=== PATIENT | female | born 1935 | race Caucasian/White ===

== ENCOUNTER 2020-06-16 08:43 | Outpatient (RCR) | payer MEDICARE, SELFPAY | END 2020-06-16 23:59 | LOC: IMMUN 08:43 | PROVIDERS: PCP Family Medicine; Visit Provider Family Medicine | DX: Z23 Encounter for immunization (principal) | CPT/HCPCS: 0011A; 0012A ==

== ENCOUNTER → 2020-06-22 11:28 | Outpatient (CLI) | payer MEDICARE, SELFPAY ==
[2020-06-22 15:32] LABS: Anion Gap 5 (5-15); BUN 13 mg/dL (7-18); BUN/Creat Ratio 19.7 RATIO (10-20); Calcium,Total 9.1 mg/dL (8.5-10.1); Chloride 103 mmol/L (98-107); Creatinine, Serum 0.66 mg/dL (0.55-1.02); EST Glomerular Filtration Rate 91 mL/min (>60); Est Glom Filt Rate - Afr Amer 110 mL/min (>60); Glucose 85 mg/dL (74-106); Microalbumin,Random Urine 25.5 mg/L (NO RANGE EST.); Microalbumin:Creatinine Ratio 88.2 mg/g CRE (<30 mg/g CRE); Potassium 3.7 mmol/L (3.5-5.1); Sodium Level 138 mmol/L (136-145)
== END ==
PROVIDERS: PCP Family Medicine; Referring Provider Family Medicine; Visit Provider Family Medicine
DX: I10 Essential (primary) hypertension (principal)
CPT/HCPCS: 36415; 80048; 82043; 82570

== ENCOUNTER 2020-10-05 13:00 | Outpatient (RCR) | payer MEDICARE, OTHER, SELFPAY ==
--- NOTE | 2020-09-08 13:41 | HP.PTEVAL_ITS ---
Patient's Visit Information EILEEN GIMENEZ is a 85 year old F referred to Physical Therapy by Dr. Alfa Magana MD with a diagnosis of gait instability, postural imbalance. Date of Evaluation: 09/08/20 Physical Therapist: REJI Alvarado - Visit Plan Frequency: 1x/Week Duration: 4 Weeks Plan: Please give HEP for balance and strength each visit as daughter will help her at home. 1X/ week for 4 weeks for Balance activities, LE strengthening, gait training, vestibular inputs with HEP (daughter can help her at home). Neurocom testing will not be done at this time as the pt does not feel she can stand there for more than 1 minute without having to hold onto anything and her daughter agrees - Subjective Pt has gait instability and imbalance. They just moved from [place] to [place] in January. During the move it was unsettling for her and she had some issues. She was up and moving around. She has no steps in her new place. She can walk but she likes to falls and she does not feel real confident walking by herself and uses the cane. She does a lot of things by herself. She walks a lot. She lives with her daughter Beth. 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 She does most cooking and laundry. Dr Magana said she needed PT... she has osteopenia and rounded shoulders and needed to see PT. No falls this year. She has fallen in the past. She tries to get out and take little walks. Her L foot aches across the front of her foot and daughter reports she turns it when she walks. She has had plantar fascitis in the past. Pt has anxiety. Pt is not sleeping at night and has not told her Dr. - Objective Gait: Short steppage gait... decreased heel to toe pattern and increased veering. No arm swing. Pt struggles with toe raises but can do heel raises. LE MMT: B hip flex 4-/5, B knee ext 4-/5, B knee ext 4+/5, R hip abd 4/5, L hip abd 4-/5. Full ROM bridge. FGA: 04/21 ( walking BW and walking in generall she likes to reach out and try and hold onto somethings). CATSIB: 91. Tight B gastroc tightness. Sit to stand: unable to stand without using her arms. Stairs: up stairs recip with 2 handrails and down stairs she went recip with 2 handrails more SW. L foot arch collapsing.... - Balance Scores Functional Gait Assessment Score: 12 % Disability: 60.0000 CATSIB Score (Max score 120 seconds): 91 - Goals Goal 1:: I HEP Goal Time Frame: 6-8 Weeks Goal 2:: Walk back to the treatment room/gym with SBA without veering Goal Time Frame: 4-6 Weeks Goal 3:: Increase LE strength by 1/2 muscle grade (at time of eval: Pt s truggles with toe raises but can do heel raises. LE MMT: B hip flex 4-/5, B knee ext 4-/5, B knee ext 4+/5, R hip abd 4/5, L hip abd 4-/5. Full ROM bridge). Goal Time Frame: 4-6 Weeks Goal 4:: Increase FGA by 5 points to decrease fall risk (at time of eval score: 12). Goal Time Frame: 4-6 Weeks Goal 5:: Be able to perform 3 X 10 standing toe raises without LOB and UE if needed Goal Time Frame: 4-6 Weeks - Rehabilitation Potential Rehabilitation Potential: Good - Anticipated Interventions Patient/Client Instruction: Educate patient on: Condition, Plan of Care For the Purpose of:: To improve muscle performance and motor function, To improve ability to perform ADL's, To increase tolerance to activity/condition/position, To improve performance and independence with ADL's, To improve ability of physical actions for home/community/work/leisure, To improve gait and locomotor functions, To decrease soft tissue restriction, To increase flexibility/ROM, To improve balance, To improve safety with gait Therapeutic Exercise to Include: Strength training, Endurance training, Balance training, Postural training, Flexibilty training, Gait and locomotor training, Neuromotor development, Passive ROM, Active ROM, Dynamic Lumbar Stabilization For the Purpose of:: To improve muscle performance and motor function, To improve ability to perform ADL's, To increase tolerance to activity/condition/position, To improve performance and independence with ADL's, To decrease level of supervision to perform tasks, To improve ability of physical actions for home/community/work/leisure, To improve gait and locomotor functions, To improve health of tissue, To increase flexibility/ROM, To improve endurance, To improve balance, To improve safety with gait Functional Training to Include: Gait training For the Purpose of:: To improve gait and locomotor functions, To improve safety with gait Thank you for the opportunity to evaluate your patient. For Medicare and Medicare HMO plans, please review the plan of care and approve it. It will need to be FAXED BACK to us at [phone] for Medicare purposes. For Medicare only, by signing this I certify the plan of care. Please let me know if there are questions or concerns regarding this plan of care. Physician Signature: Date:
--- NOTE | 2020-10-05 13:58 | HP.PTDCSUM ---
It has been my pleasure to treat EILEEN GIMENEZ referred by Dr. Alfa Magana MD, with the diagnosis of gait instability, postural imbalance for a total of 5 visit(s). Discharge Date: 10/05/20 Please see the following information for a summary of their discharge status. Subjective: Pt reports that she is trying to do more on her own. She walked in with a walking stick without her daughter. She did grab for my arm at times. She went 5 miles at home on her exercise bike. She feels she can do more of her exercises at home now. She feels more comfortable walking by herself with her walking stick. % Improvement: 75 Objective/Function: Pt struggles with toe raises but can do heel raises... improved in ROM since eval though. LE MMT: B hip flex 4/5, B knee ext 4/5, B knee ext 4+/5, R hip abd 4/5, L hip abd 4/5. Full ROM bridge). FGA: 18 Goal 1:: I HEP Goal Progress: Goal Met Goal 2:: Walk back to the treatment room/gym with SBA without veering Goal Progress: Goal Met Goal 3:: Increase LE strength by 1/2 muscle grade (at time of eval: Pt struggles with toe raises but can do heel raises. LE MMT: B hip flex 4-/5, B knee ext 4-/5, B knee ext 4+/5, R hip abd 4/5, L hip abd 4-/5. Full ROM bridge). Goal Progress: Goal Met Goal 4:: Increase FGA by 5 points to decrease fall risk (at time of eval score: 12). Goal Progress: Goal Met Goal 5:: Be able to perform 3 X 10 standing toe raises without LOB and UE if needed Goal Progress: Progressing Plan: DC PT to HEP..... Discharge Comments: DC PT to HEP If there are questions or concerns regarding this patient's physical therapy, please feel free to call me at [phone]. Thank you for the referral of this patient. Sincerely, Soni Howard, MPT
== END 2020-10-05 14:42 | disposition home or self-care (01) ==
LOC: PT 13:00
PROVIDERS: PCP Family Medicine; Referring Provider Family Medicine; Visit Provider Family Medicine
DX: R26.89 Other abnormalities of gait and mobility (principal); R29.3 Abnormal posture
CPT/HCPCS: 97110; 97161; 97530

== ENCOUNTER 2022-09-21 13:42 | Outpatient (RCR) | payer MEDICARE, OTHER, SELFPAY | END 2022-09-21 19:00 | disposition home or self-care (01) | LOC: PT 13:42 | PROVIDERS: PCP Family Medicine; Referring Provider Family Medicine; Visit Provider Family Medicine | DX: M79.675 Pain in left toe(s) (principal); M79.2 Neuralgia and neuritis, unspecified ==

== ENCOUNTER 2023-05-30 13:00 | Outpatient (RCR) | payer MEDICARE, OTHER, SELFPAY ==
--- NOTE | 2023-04-25 13:54 | HP.PTEVAL ---
Patient's Visit Information Visit Information Visit Information: EILEEN GIMENEZ is a 88 year old F referred to Physical Therapy by Dr. Alfa Magana MD with a diagnosis of weak abdominals, gait instability. Date of Evaluation: 04/25/23 Physical Therapist: REJI Alvarado Visit Plan Frequency: 1x/Week Duration: 6 Weeks Plan: 1X/ week for 6 weeks to work on gait mechanics with and without a straight cane, turning, gait with head turns, curb steps, with HEP. Will work on giving pt HEP for hip and ankle strength. No need for balance machine at this point. HEP: standing hip abd/ext and standing heel and toe raises at kitchen sink. Bridges Subjective Subjective: Pt has a little bit of balance issues. She has some trouble walking and she uses the cane. She has dry macular degeneration and thinks that throws her balance off. She has had no falls. She does not use the cane unless she goes out but forgot it this morning. Her daughter lives with her and she leans on her a lot. Pt does not feel that she has any weakness. She has some trouble with her L foot. She does trip on her feet once in awhile. She has no stairs at home. She reports that she has no trouble getting up out of a chair. She has no dizziness Objective Objective: Gait: Walks with shorter step length and decreased heel to toe gait pattern requesting to hold onto therapists arm to get back to the treatment area due to forgetting her straight cane. LE MMT: R hip flex 14.6 and L 14.4 R knee ext 22.9 and L 24.1 R knee flex 8.9 and L 8.3 R hip abd R 7.2 and L 8.2 in standing FGA: 11/19 ( Instructed pt that she is at risk for falls and needs to use her AD) Pt struggles with toe raises and needs UE support and she is better with heel raises but still weak Sit to stand: Able to get up but needs UE to get out of a chair Balance/Special Test Scores Functional Gait Assessment Score: 7 % Disability: 76.6700 Lower Extremity Functional Score: 49 Goals Goal 1:: I HEP Goal Time Frame: 6-8 Weeks Goal 2:: Increase balance (score on FGA was 7 at eval) Goal Time Frame: 6-8 Weeks Goal 3:: Be able to walk back to the treatment room with good gait mechanics with a straight cane with SBA without veering or UE support Goal Time Frame: 6-8 Weeks Goal 4:: Walk with head turns without veering or losing her balance Goal Time Frame: 6-8 Weeks Rehabilitation Potential Rehabilitation Potential: Good Anticipated Interventions Patient/Client Instruction: Educate patient on: Condition and Plan of Care For the Purpose of:: To decrease pain, To increase ROM, To improve nutrient delivery to tissue, To improve muscle performance and motor function, To improve ability to perform ADL's, To improve performance and independence with ADL's, To improve ability of physical actions for home/community/work/leisure, To improve gait and locomotor functions, To improve endurance, To improve balance and To improve safety with gait Therapeutic Exercise to Include: Strength training, Endurance training, Balance training, Gait and locomotor training, Neuromotor development and Dynamic Lumbar Stabilization For the Purpose of:: To increase ROM, To improve nutrient delivery to tissue, To improve muscle performance and motor function, To improve ability to perform ADL's, To increase tolerance to activity/condition/position, To improve performance and independence with ADL's, To decrease level of supervision to perform tasks, To improve ability of physical actions for home/community/work/leisure, To improve gait and locomotor functions, To improve health of tissue, To improve endurance, To improve balance and To improve safety with gait Functional Training to Include: Gait training For the Purpose of:: To improve gait and locomotor functions and To improve safety with gait Text: Thank you for the opportunity to evaluate your patient. For Medicare and Medicare HMO plans, please review the plan of care and approve it. It will need to be FAXED BACK to us at [phone] for Medicare purposes. For Medicare only, by signing this I certify the plan of care. Please let me know if there are questions or concerns regarding this plan of care. Physician Signature: Date:
--- NOTE | 2023-05-30 13:33 | HP.PTDCSUM_ITS ---
Discharge Summary D/C summary: It has been my pleasure to treat EILEEN GIMENEZ referred by Dr. Alfa Magana MD, with the diagnosis of weak abdominals, gait instability for a total of 7 visit(s). Discharge Date: 05/30/23 Please see the following information for a summary of their discharge status. Subjective Subjective: Pt thinks that she has learned a lot about balance and she has learned that one of her challenges is to go backwards, and walking and looking R and L. She feels that she can continue to work with her daughter at home with her balance at home. She has a stationary bike at home that she will use also. Her daughter is holding her hand and having her turn her head R and L. She is doing other exercises as well. Overall Improvement % Improvement: 50 Objective Objective/Function: FGA: 15 walk with head turns Straight cane. Goals Goal 1:: I HEP Goal Progress: Goal Met Goal 2:: Increase balance (score on FGA was 7 at eval) Goal Progress: Goal Met Goal 3:: Be able to walk back to the treatment room with good gait mechanics with a straight cane with SBA without veering or UE support Goal Progress: Goal Met Goal 4:: Walk with head turns without veering or losing her balance Goal Progress: Goal Met Plan Plan: DC PT to [facility] working with her ad D/C Information Discharge Comments: DC PT to HEP and daughter will help who lives with her. d/c sentence: If there are questions or concerns regarding this patient's physical therapy, please feel free to call me at [phone]. Thank you for the referral of this patient. Sincerely, Soni Howard, MPT Balance/Gait/Functional tests Balance/Special Test Scores Functional Gait Assessment Score: 15 % Disability: 50.0000 Lower Extremity Functional Score: 45 Improvement % Improvement: 50
--- NOTE | 2023-05-30 14:04 | HP.PTDCSUM ---
Discharge Summary D/C summary: It has been my pleasure to treat EILEEN GIMENEZ referred by Dr. Alfa Magana MD, with the diagnosis of weak abdominals, gait instability for a total of 7 visit(s). Discharge Date: 05/30/23 Please see the following information for a summary of their discharge status. Subjective Subjective: Pt thinks that she has learned a lot about balance and she has learned that one of her challenges is to go backwards, and walking and looking R and L. She feels that she can continue to work with her daughter at home with her balance at home. She has a stationary bike at home that she will use also. Her daughter is holding her hand and having her turn her head R and L. She is doing other exercises as well. Overall Improvement % Improvement: 50 Objective Objective/Function: FGA: 15 walk with head turns Straight cane. Goals Goal 1:: I HEP Goal Progress: Goal Met Goal 2:: Increase balance (score on FGA was 7 at eval) Goal Progress: Goal Met Goal 3:: Be able to walk back to the treatment room with good gait mechanics with a straight cane with SBA without veering or UE support Goal Progress: Goal Met Goal 4:: Walk with head turns without veering or losing her balance Goal Progress: Goal Met Plan Plan: DC PT to [facility] working with her ad D/C Information Discharge Comments: DC PT to HEP and daughter will help who lives with her. d/c sentence: If there are questions or concerns regarding this patient's physical therapy, please feel free to call me at [phone]. Thank you for the referral of this patient. Sincerely, Soni Howard, MPT Balance/Gait/Functional tests Balance/Special Test Scores Functional Gait Assessment Score: 15 % Disability: 50.0000 Lower Extremity Functional Score: 45 Improvement % Improvement: 50
== END 2023-05-30 19:00 | disposition home or self-care (01) ==
LOC: PT 13:00
PROVIDERS: PCP Family Medicine; Referring Provider Family Medicine; Visit Provider Family Medicine
DX: R26.81 Unsteadiness on feet (principal); R53.1 Weakness
CPT/HCPCS: 97110; 97161; 97530

== ENCOUNTER 2024-07-18 12:11 | Outpatient (RCR) | payer MEDICARE, OTHER, SELFPAY ==
--- NOTE | 2024-07-18 13:11 | HP.PTEVAL ---
Patient's Visit Information Visit Information Visit Information: EILEEN GIMENEZ is a 89 year old F referred to Physical Therapy by Dr. Alfa Magana MD with a diagnosis of KNEE ARTHRITIS. Date of Evaluation: 07/18/24 Physical Therapist: Logan Henry PT, Cert MDT, OCS Visit Plan Frequency: 2x /Week Duration: 4 Weeks Plan: PT EVAL ONLY HEP PROVIDED WITH HANDOUT Subjective Subjective: This 89 y/o female presents to physical therapy with knee arthritis right knee. Patient has had knee pain June 29 walking to toilet had pain pain in knee slipped out of bed. Patient developed worsening knee pain. Dr Recommended PT no x-rays or medication.Pain global in knee described soreness ache. Aggravating factors inactivity unable to squat or kneeling . Alleviating factors heat. Patient uses cane but has rollator at home and community but used cane due to rain. Patient denies parestehesia/tingling . Patient pain doesn't affects sleeping . Patient lives with daughter no steps istep to garage . Patient has walk in shower with rails. Patient able to bath dress self daughter does cooking. Patient condition affects QOL and function Patient goals to decrease pain SOCIAL: lives with daughter Pain Left Knee: Pain Intensity (Out of 10): 2 Pain Intensity Range: 10 Comment: stiffness Objective Objective: POSTURE: mild forward posture ,hips/knees flexed GAIT: ambulates with cane with 2 point gait unsteady with CGA ( but patient uses rollator) NEURO: denies paresthesia/tingling ,reflexes L3-4,L4-5 ,L5- S1 1/3 EDEMA: absent PALAPTION: medial lateral mild joint line AROM: 0-130 degrees supine knee flexion MMT: quads/hams 4/5 ,hip flexion ,hip abduction 4-/5 ,ankle 5/5 FLEXABLITY: hamstrings min tight Special Tests L Knee Valgus - MCL: Negative L Knee Varus - LCL: Negative L Knee Patellar Apprehension - PFS: Negative L Knee Patellar Grind - PFS: Negative Goals Goal 1:: I with HEP for knee Goal Time Frame: 4-6 Weeks Goal 2:: Patient to improve LFES core by 5 points to improve QOL and function Goal Time Frame: 4-6 Weeks Goal 3:: Patient to demonstrate 50% improvement with ADL and function and mobility. Goal Time Frame: 4-6 Weeks Goal 4:: Patient to improve hip strength 4/5 to improve gait Goal Time Frame: 4-6 Weeks Rehabilitation Potential Physical Therapy Diagnosis: This patient has left knee pain with possible DJD with strain knee with decrease strength and mobility thus benefit from skilled PT,recommend using rollator Rehabilitation Potential: Fair Anticipated Interventions Patient/Client Instruction: Educate patient on: Condition and Plan of Care For the Purpose of:: To decrease pain, To increase ROM, To improve muscle performance and motor function, To improve ability to perform ADL's, To increase tolerance to activity/condition/position, To improve ability of physical actions for home/community/work/leisure, To improve health of tissue, To decrease soft tissue restriction, To increase flexibility/ROM and To improve tolerance to ADL's Therapeutic Exercise to Include: Strength training, Flexibilty training, Passive ROM and Active ROM Comment: QUADS/HAMS For the Purpose of:: To decrease pain, To increase ROM, To improve muscle performance and motor function, To increase tolerance to activity/condition/position, To improve ability of physical actions for home/community/work/leisure, To improve health of tissue and To decrease soft tissue restriction Text: Thank you for the opportunity to evaluate your patient. For Medicare and Medicare HMO plans, please review the plan of care and approve it. It will need to be FAXED BACK to us at [phone] for Medicare purposes. For Medicare only, by signing this I certify the plan of care. Please let me know if there are questions or concerns regarding this plan of care. Physician Signature: Date:
--- NOTE | 2024-08-28 11:41 | HP.PT.NRP ---
Patient Information Patient Information: EILEEN GIMENEZ was seen in my office for initial evaluation on 07/18/24. The following Plan of Care was established for this patient: POC Established Initial Frequency: 2x /Week Initial Duration: 4 Weeks Anticipated Interventions Patient/Client Instruction: Educate patient on: Condition and Plan of Care For the Purpose of:: To decrease pain, To increase ROM, To improve muscle performance and motor function, To improve ability to perform ADL's, To increase tolerance to activity/condition/position, To improve ability of physical actions for home/community/work/leisure, To improve health of tissue, To decrease soft tissue restriction, To increase flexibility/ROM and To improve tolerance to ADL's Therapeutic Exercise to Include: Strength training, Flexibilty training, Passive ROM and Active ROM For the Purpose of:: To decrease pain, To increase ROM, To improve muscle performance and motor function, To increase tolerance to activity/condition/position, To improve ability of physical actions for home/community/work/leisure, To improve health of tissue and To decrease soft tissue restriction Last Seen Last Seen: This patient was last seen in our office . Pertinent comments regarding their Physical therapy will appear below: Patient was seen for PT for OA right knee for HEP At this point I will be discontinuing this patient from physical therapy. I would be happy to see this patient again in the future if found appropriate by the physician. Thank you! Logan Henry, PT, Cert MDT, OCS
== END 2024-07-18 19:00 | disposition home or self-care (01) ==
LOC: PT 12:11
PROVIDERS: PCP Family Medicine; Referring Provider Family Medicine; Visit Provider Family Medicine
DX: M17.9 Osteoarthritis of knee, unspecified (principal)
CPT/HCPCS: 97110; 97162

== ENCOUNTER → 2024-10-16 | Outpatient (CLI) | payer MEDICARE, OTHER, SELFPAY ==
[2024-10-16 18:18] LABS: Microalbumin,Random Urine < 12.0 mg/L (NO RANGE EST.); Microalbumin:Creatinine Ratio UNABLE TO CALCULATE mg/g CRE
[2024-10-16 18:21] LABS: ALB/GLOB Ratio 1.4 RATIO (0.9-2.4); AST(SGOT) 24 U/L (<=31); Alanine Aminotransfer ALT/SGPT 14 U/L (<=34); Alkaline Phosphatase 107 U/L (35-104); Anion Gap 10 (5-15); BUN 16 mg/dL (4-19); Calcium,Total 9.4 mg/dL (7.6-11.0); Chloride 102 mmol/L (98-108); Creatinine, Serum 0.69 mg/dL (0.70-1.20); EST Glomerular Filtration Rate 84 (>60); Globulin 2.9 g/dL (2.2-4.2); Glucose 82 mg/dL (70-99); Potassium 4.3 mmol/L (3.3-5.1); Protein, Total 6.8 g/dL (5.9-8.4); Sodium Level 138 mmol/L (133-145); Total Bilirubin 0.59 mg/dL (0.00-1.30)
== END | disposition home or self-care (01) ==
LOC: MFPLAB 15:20
PROVIDERS: PCP Family Medicine; Referring Provider Family Medicine; Visit Provider Family Medicine
DX: I10 Essential (primary) hypertension (principal)
CPT/HCPCS: 36415; 80053; 82043; 82570